=== PATIENT | male | born 1930 | race Caucasian/White ===

== ENCOUNTER 2018-04-24 14:54 | Emergency (ER) | payer MEDICARE, BC ==
[2018-04-24] MEDS ORDERED: Sodium Chloride 0.9% 1,000 ML IV SCH (15:30)
--- NOTE | 2018-04-24 15:31 | EDM.PDOC ---
ED HPI GENERAL MEDICAL PROBLEM - General Chief Complaint: Abdominal Pain Stated Complaint: STOMACH PAIN,FATIGUE Time Seen by Provider: 04/24/18 15:29 Source of Information: Reports: Patient History Limitations: Reports: No Limitations - History of Present Illness INITIAL COMMENTS - FREE TEXT/NARRATIVE: 87-year-old gentleman presents the ED for evaluation of left-sided mid abdominal pain 2 days. He does admit that it tends to come and go and has a colicky component. States his bowels are working normally. Denies that they've ever made him nauseated. States that his appetite is less than normal. Unsure about any fever or chills. He wears a depends because of incontinence of urine. Feels he is emptying his bladder completely. No history of abdominal surgery. Does not feel bloated. Is still passing flatus. Caretakers his daughter's identify that he is retaining some fluid in his lower extremities. Feel he may be a little more short of breath than normal. He has no known heart history of VT or heart failure. 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 At the time of dictation his home meds were not listed. His daughter reports that he has not had any medication changes in the last month. Patient states the pain does not radiate through to his back. He does not drink alcohol. Onset: Gradual Onset Date: 04/22/18 (Pain is been present for at least 2 days that he's been telling his doctors about.) Duration: Day(s):, Intermittent (Seems to be strongly colicky component to the pain) Location: Reports: Abdomen (Left mid abdomen.) Quality: Reports: Ache, Other (Occasionally sharp and stabbing.) Severity: Moderate Improves with: Reports: None Worsens with: Reports: None Context: Denies: Activity, Exercise, Lifting, Sick Contact, Trauma, Other Associated Symptoms: Reports: Fever/Chills (Not sure.), Loss of Appetite, Malaise, Shortness of Breath, Weakness (Perhaps a little more weak in his left lower extremity.). Denies: No Other Symptoms, Confusion, Chest Pain, Cough, cough w sputum, Diaphoresis, Headaches, Nausea/Vomiting, Rash, Seizure (Tire appreciates this seems to be a little more short of breath. 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: Reports: Other (see below) (.Appreciates this when he tries to walk up stairs as almost like he's got a bit of a foot drop.) Left Middle Abdomen Pain Score (Numeric/FACES): 8 - Related Data Allergies Allergy/AdvReac Type Severity Reaction Status Date / Time No Known Allergies Allergy Verified 04/24/18 15:07 Past Medical History Cardiovascular History: Reports: High Cholesterol, Hypertension Neurological History: Reports: CVA Psychiatric History: Reports: Depression Endocrine/Metabolic History: Reports: Diabetes, Type II, Hypothyroidism Social & Family History - Family History Family Medical History: Noncontributory - Tobacco Use Smoking Status *Q: Former Smoker Used Tobacco, but Quit: Yes Month/Year Tobacco Last Used: 2004 - Caffeine Use Caffeine Use: Reports: Coffee - Recreational Drug Use Recreational Drug Use: No - Living Situation & Occupation Living situation: Reports: Occupation: Retired ED ROS GENERAL - Review of Systems Review Of Systems: See Below Constitutional: Reports: Malaise, Weakness, Fatigue, Decreased Appetite. Denies : Fever, Chills, Weight Loss HEENT: Reports: Glasses, Other Respiratory: Reports: Shortness of Breath (A little hard of hearing. Does not wear hearing aids.). Denies: Wheezing, Pleuritic Chest Pain, Cough, Sputum, Hemoptysis Cardiovascular: Reports: Dyspnea on Exertion (Left leg is noted to be swelling a bit more than normal. Seems to be a little more short of breath on exertion.) , Edema. Denies: Blood Pressure Problem, Claudication, Lightheadedness, Orthopnea Endocrine: Reports: Fatigue GI/Abdominal: Reports: Abdominal Pain (See history of present illness), Decreased Appetite, Flatus. Denies: Constipation, Diarrhea, Distension ( Passing flatus), Hematemesis, Hematochezia, Mucous in Stool, Nausea, Stool Incontinence : Reports: Incontinence Musculoskeletal: Reports: Neck Pain ( shoulders), Shoulder Pain, Back Pain, Joint Pain (Knees hips) Skin: Reports: No Symptoms Neurological: Reports: Other (Previous CVA with right-sided hemiparesis from which he recovered from) Psychiatric: Reports: No Symptoms ( for the most part quite well.) Hematologic/Lymphatic: Reports: No Symptoms Immunologic: Reports: No Symptoms ED EXAM, GI/ABD - Physical Exam Exam: See Below Exam Limited By: No Limitations General Appearance: Alert, WD/WN, No Apparent Distress, Other (Does not feel warm to palpation. Vital signs are normal.) Eyes: Bilateral: Normal Appearance Throat/Mouth: Normal Inspection, Normal Lips, Normal Oropharynx Head: Atraumatic, Normocephalic Neck: Normal Inspection, Supple, Non-Tender, Full Range of Motion, Other (No jugular venous distention.). No: Carotid Bruit, Lymphadenopathy (L), Lymphadenopathy (R), Thyromegaly Respiratory/Chest: No Accessory Muscle Use, Chest Non-Tender, Crackles (Few crackles at both bases appreciated on auscultation posteriorly.). No: Lungs Clear, Normal Breath Sounds, Rhonchi, Wheezing Cardiovascular: Regular Rate, Rhythm, No Edema, No Gallop. No: Normal Peripheral Pulses GI/Abdominal Exam: Normal Bowel Sounds, Soft, Non-Tender, No Organomegaly, No Abnormal Bruit, No Mass, Pelvis Stable, Abnormal Bowel Sounds (I could elicit no tenderness. Decreased from the norm.), Other. No: Distended, Guarding, Rigid , Rebound, Tender (Male) Exam: No Hernia (No umbilical hernia.) Back Exam: Normal Inspection, Full Range of Motion. No: CVA Tenderness (L), CVA Tenderness (R) Extremities: Pedal Edema (2+ pitting edema left lower extremity. Right is normal.), Other (Evidence of osteophytic changes both knees and hips.) Neurological: Alert, Oriented, CN II-XII Intact, Normal Cognition EKG INTERPRETATION EKG Date: 04/24/18 Time: 15:57 Rhythm: NSR Rate (Beats/Min): 78 (Frequent unifocal PVCs. 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 Decreased both urge in both the limb and precordial leads compose COPD pattern.) ST-T: Normal QT: Prolonged (Mildly prolonged.) Course - Vital Signs Last Recorded V/S: Last Vital Signs Temp 36.9 C 04/24/18 15:02 Pulse 81 04/24/18 15:02 Resp 16 04/24/18 15:02 BP 145/72 H 04/24/18 15:02 Pulse Ox 99 04/24/18 15:02 - Orders/Labs/Meds Orders: Active Orders 24 hr Category Date Time Status EKG Documentation Completion [RC] STAT Care 04/24/18 15:30 Active Abdomen 1V Flat [CR] Stat Exams 04/24/18 15:30 Taken CULTURE BLOOD [BC] Stat Lab 04/24/18 15:43 Received CULTURE BLOOD [BC] Stat Lab 04/24/18 15:53 Received Magnesium Citrate [Citrate of Magnesia] Med 04/24/18 17:29 Once 240 ml PO ONETIME ONE Sodium Chloride 0.9% [Normal Saline] 1,000 ml Med 04/24/18 15:30 Active IV ASDIRECTED Blood Culture x2 Reflex Set [OM.PC] Stat Oth 04/24/18 15:30 Ordered Medication Orders Sodium Chloride (Normal Saline) 1,000 mls @ 200 mls/hr IV ASDIRECTED [place] Last Admin: 04/24/18 15:50 Dose: 200 mls/hr Magnesium Citrate (Citrate Of Magnesia) 240 ml PO ONETIME ONE Stop: 04/24/18 17:30 Labs: Laboratory Tests 04/24/18 04/24/18 04/24/18 Range/Units 15:43 15:43 15:43 WBC 4.46 (4.23-9.07) K/mm3 RBC 4.69 (4.63-6.08) M/mm3 Hgb 14.5 (13.7-17.5) gm/L Hct 43.0 (40.1-51.0) % MCV 91.7 (79.0-92.2) fl MCH 30.9 (25.7-32.2) pg MCHC 33.7 (32.2-35.5) g/dl RDW Std Deviation 45.6 H (35.1-43.9) fL Plt Count 165 (163-337) K/mm3 MPV 10.0 (9.4-12.3) fl Neutrophils % (Manual) 52 (40-60) % Band Neutrophils % 0 (0-10) % Lymphocytes % (Manual) 42 H (20-40) % Atypical Lymphs % 0 % Monocytes % (Manual) 3 (2-10) % Eosinophils % (Manual) 3 (0.8-7.0) % Basophils % (Manual) 0 L (0.2-1.2) Platelet Estimate Adequate Plt Morphology Comment Normal RBC Morph Comment Normal PT 10.7 (9.5-12.1) SECONDS INR 0.98 APTT (24-31) SECONDS Sodium 140 (136-145) mEq/L Potassium 4.2 (3.5-5.1) mEq/L Chloride 105 (98-107) mEq/L Carbon Dioxide 25 (21-32) mEq/L Anion Gap 14.2 (5-15) BUN 23 H (7-18) mg/dL Creatinine 1.5 H (0.7-1.3) mg/dL Est Cr Clr Drug Dosing 38.35 mL/min Estimated GFR (MDRD) 44 (>60) mL/min BUN/Creatinine Ratio 15.3 (14-18) Glucose 179 H (83-115) mg/dL Lactic Acid (0.4-2.0) mmol/L Calcium 9.9 (8.5-10.1) mg/dL Magnesium 1.8 (1.8-2.4) mg/dl Total Bilirubin 0.4 (0.2-1.0) mg/dL AST 13 L (15-37) U/L ALT 26 (16-63) U/L Alkaline Phosphatase 92 (46-116) U/L Troponin I < 0.017 (0.00-0.056) ng/mL C-Reactive Protein 1.4 H* (<1.0) mg/dL NT-Pro-B Natriuret Pep (0-450) pg/mL Total Protein 6.8 (6.4-8.2) g/dl Albumin 3.1 L (3.4-5.0) g/dl Globulin 3.7 gm/dL Albumin/Globulin Ratio 0.8 L (1-2) Lipase 150 (73-393) U/L Urine Color (Yellow) Urine Appearance (Clear) Urine pH (5.0-8.0) Ur Specific Hooper (1.005-1.030) Urine Protein (Negative) Urine Glucose (UA) (Negative) Urine Ketones (Negative) Urine Occult Blood (Negative) Urine Nitrite (Negative) Urine Bilirubin (Negative) Urine Urobilinogen (0.2-1.0) Ur Leukocyte Esterase (Negative) Urine RBC (0-5) /hpf Urine WBC (0-5) /hpf Ur Epithelial Cells (0-5) /hpf Urine Bacteria (FEW) /hpf Urine Mucus (FEW) /hpf 04/24/18 04/24/18 04/24/18 Range/Units 15:43 15:43 15:43 WBC (4.23-9.07) K/mm3 RBC (4.63-6.08) M/mm3 Hgb (13.7-17.5) gm/L Hct (40.1-51.0) % MCV (79.0-92.2) fl MCH (25.7-32.2) pg MCHC (32.2-35.5) g/dl RDW Std Deviation (35.1-43.9) fL Plt Count (163-337) K/mm3 MPV (9.4-12.3) fl Neutrophils % (Manual) (40-60) % Band Neutrophils % (0-10) % Lymphocytes % (Manual) (20-40) % Atypical Lymphs % % Monocytes % (Manual) (2-10) % Eosinophils % (Manual) (0.8-7.0) % Basophils % (Manual) (0.2-1.2) Platelet Estimate Plt Morphology Comment RBC Morph Comment PT (9.5-12.1) SECONDS INR APTT 32 H (24-31) SECONDS Sodium (136-145) mEq/L Potassium (3.5-5.1) mEq/L Chloride (98-107) mEq/L Carbon Dioxide (21-32) mEq/L Anion Gap (5-15) BUN (7-18) mg/dL Creatinine (0.7-1.3) mg/dL Est Cr Clr Drug Dosing mL/min Estimated GFR (MDRD) (>60) mL/min BUN/Creatinine Ratio (14-18) Glucose (83-115) mg/dL Lactic Acid 2.5 H (0.4-2.0) mmol/L Calcium (8.5-10.1) mg/dL Magnesium (1.8-2.4) mg/dl Total Bilirubin (0.2-1.0) mg/dL AST (15-37) U/L ALT (16-63) U/L Alkaline Phosphatase (46-116) U/L Troponin I (0.00-0.056) ng/mL C-Reactive Protein (<1.0) mg/dL NT-Pro-B Natriuret Pep 392 (0-450) pg/mL Total Protein (6.4-8.2) g/dl Albumin (3.4-5.0) g/dl Globulin gm/dL Albumin/Globulin Ratio (1-2) Lipase (73-393) U/L Urine Color (Yellow) Urine Appearance (Clear) Urine pH (5.0-8.0) Ur Specific Hooper (1.005-1.030) Urine Protein (Negative) Urine Glucose (UA) (Negative) Urine Ketones (Negative) Urine Occult Blood (Negative) Urine Nitrite (Negative) Urine Bilirubin (Negative) Urine Urobilinogen (0.2-1.0) Ur Leukocyte Esterase (Negative) Urine RBC (0-5) /hpf Urine WBC (0-5) /hpf Ur Epithelial Cells (0-5) /hpf Urine Bacteria (FEW) /hpf Urine Mucus (FEW) /hpf 04/24/18 Range/Units 16:04 WBC (4.23-9.07) K/mm3 RBC (4.63-6.08) M/mm3 Hgb (13.7-17.5) gm/L Hct (40.1-51.0) % MCV (79.0-92.2) fl MCH (25.7-32.2) pg MCHC (32.2-35.5) g/dl RDW Std Deviation (35.1-43.9) fL Plt Count (163-337) K/mm3 MPV (9.4-12.3) fl Neutrophils % (Manual) (40-60) % Band Neutrophils % (0-10) % Lymphocytes % (Manual) (20-40) % Atypical Lymphs % % Monocytes % (Manual) (2-10) % Eosinophils % (Manual) (0.8-7.0) % Basophils % (Manual) (0.2-1.2) Platelet Estimate Plt Morphology Comment RBC Morph Comment PT (9.5-12.1) SECONDS INR APTT (24-31) SECONDS Sodium (136-145) mEq/L Potassium (3.5-5.1) mEq/L Chloride (98-107) mEq/L Carbon Dioxide (21-32) mEq/L Anion Gap (5-15) BUN (7-18) mg/dL Creatinine (0.7-1.3) mg/dL Est Cr Clr Drug Dosing mL/min Estimated GFR (MDRD) (>60) mL/min BUN/Creatinine Ratio (14-18) Glucose (83-115) mg/dL Lactic Acid (0.4-2.0) mmol/L Calcium (8.5-10.1) mg/dL Magnesium (1.8-2.4) mg/dl Total Bilirubin (0.2-1.0) mg/dL AST (15-37) U/L ALT (16-63) U/L Alkaline Phosphatase (46-116) U/L Troponin I (0.00-0.056) ng/mL C-Reactive Protein (<1.0) mg/dL NT-Pro-B Natriuret Pep (0-450) pg/mL Total Protein (6.4-8.2) g/dl Albumin (3.4-5.0) g/dl Globulin gm/dL Albumin/Globulin Ratio (1-2) Lipase (73-393) U/L Urine Color Yellow (Yellow) Urine Appearance Clear (Clear) Urine pH 5.5 (5.0-8.0) Ur Specific Hooper > or = 1.030 (1.005-1.030) Urine Protein Negative (Negative) Urine Glucose (UA) Negative (Negative) Urine Ketones Trace H (Negative) Urine Occult Blood Negative (Negative) Urine Nitrite Negative (Negative) Urine Bilirubin Negative (Negative) Urine Urobilinogen 1.0 (0.2-1.0) Ur Leukocyte Esterase Negative (Negative) Urine RBC Not seen (0-5) /hpf Urine WBC Not seen (0-5) /hpf Ur Epithelial Cells 0-5 (0-5) /hpf Urine Bacteria Not seen (FEW) /hpf Urine Mucus Not seen (FEW) /hpf Meds: Medications Generic Name Dose Route Start Last Admin Trade Name Freq PRN Reason Stop Dose Admin Sodium Chloride 1,000 mls @ 200 mls/hr 04/24/18 15:30 04/24/18 15:50 Normal Saline IV 200 mls/hr ASDIRECTED [place] Administration Magnesium Citrate 240 ml 04/24/18 17:29 Citrate Of Magnesia PO 04/24/18 17:30 ONETIME ONE - Radiology Interpretation Free Text/Narrative:: 87-year-old male presents to the ED with left-sided midabdominal pain for the better part of 2 days. Seems to be a strong colicky component to the pain suggesting a bowel contraction. Dates his bowel function is normal. No previous abdominal surgery. He is afebrile. Vital signs are otherwise normal. Does have increased dependent edema left lower extremity which is new for him. Has a few crackles in both lung bases. Plan routine labs including a lipase and coags and BNP and magnesium level. One view of the abdomen will be obtained. IV will be normal saline at 200 mils an hour. Of note no home medications were documented in the chart because the patient did not bring in list of meds that he takes. Due to the holidays the drugstore that he attends is closed we were not able to obtain a list. - Re-Assessments/Exams Free Text/Narrative Re-Assessment/Exam: 04/24/18 16:30 KUB reveals increased stool throughout the colon. There is no sign of bowel obstruction. 04/24/18 17:18 Total white count is 4.46 with 52% neutrophils no bands cells reported and slight elevation of lymphocytes at 42%. Hemoglobin is 14.5 with hematocrit of 43.0. Bili, normal 165,000. PT is 10.7 with an INR of 0.98. PTT is slightly elevated at 32. Chemistry shows a sodium of 140 with potassium of 4.2. Port 104 with a bicarbonate of 25. Anion gap is 14.2. B1 is 23. Creatinine is 1.5. 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 Glucose is elevated at 179. Lactic acid elevated at 2.5. Serum calcium is 9.9. Magnesium low normal at 1.8. Total bilirubin 0.4 transaminases and liver function normal. Troponin I is less than 0.017. C-reactive protein is mildly elevated at 1.4. BNP is 392. Lipase 150. Urinalysis shows trace ketones only. Therefore his only problem I can identify is a little bit dehydrated. He has received some fluids well in the ED at the same time mils per hour. He requires Citroma as 7 or 8 ounces by mouth tonight with juice of choice to cleanse his bowel. This appears to be the cause of his abdominal pain. Pain will be discharged home on Citroma 8 ounces by mouth mixed with 6 ounces of juice of choice once to provide bowel cleanse. Both daughters were advised of the findings of abnormal ECG indicating likely old anteroseptal myocardial infarction. He is not in heart failure at this time. Is retaining a little bit of fluid in his left leg. I did not feel this was enough to warrant treatment at this time. Departure - Departure Time of Disposition: 17:25 Disposition: Home, Self-Care 01 Condition: Fair Clinical Impression: Constipation by delayed colonic transit Abdominal pain Qualifiers: Abdominal location: left upper quadrant Qualified Code(s): R10.12 - Left upper quadrant pain - Discharge Information Referrals: Sekou Pendleton MD [Primary Care Provider] - Forms: ED Department Discharge Additional Instructions: Evaluation in the emergency room today in regards to persistent or recurrent left-sided mid abdominal pain for the last 2 days. Emanation reveals a benign abdomen with no signs of anything serious. Lab work was done and reveals a normal white blood cell count with no signs of infection. Urinalysis turned out to be normal too. The only findings on lab testing was that you are little bit dehydrated. This was corrected with IV fluids while you were in the ED. Urinalysis proved to be negative for any signs of infection. X-ray of the abdomen shows increased stool throughout the colon particularly the right and mid and left upper colon. This appears to be the cause of your recurrent colicky type abdominal pain. There is 21 feet of small bowel once to move that stool plug over to the left side and out of your body. Constipation is treatment. I suggest use of 8 ounces of magnesium citrate or Citroma mixed with 5-6 ounces of juice of choice taken by mouth once. This usually starts to work in 1-2 hours and will usually make the bowels work 3 or 4 times. This should clear up your abdominal pain. Positive constipation persist consider taking MiraLAX powder 17 g or 1 scoop daily to keep the bowels regular. - My Orders Last 24 Hours: My Active Orders 04/24/18 15:30 EKG Documentation Completion [RC] STAT Abdomen 1V Flat [CR] Stat Sodium Chloride 0.9% [Normal Saline] 1,000 ml IV ASDIRECTED Blood Culture x2 Reflex Set [OM.PC] Stat 04/24/18 15:43 CULTURE BLOOD [BC] Stat 04/24/18 15:53 CULTURE BLOOD [BC] Stat 04/24/18 17:29 Magnesium Citrate [Citrate of Magnesia] 240 ml PO ONETIME ONE - Assessment/Plan Last 24 Hours: My Active Orders 04/24/18 15:30 EKG Documentation Completion [RC] STAT Abdomen 1V Flat [CR] Stat Sodium Chloride 0.9% [Normal Saline] 1,000 ml IV ASDIRECTED Blood Culture x2 Reflex Set [OM.PC] Stat 04/24/18 15:43 CULTURE BLOOD [BC] Stat 04/24/18 15:53 CULTURE BLOOD [BC] Stat 04/24/18 17:29 Magnesium Citrate [Citrate of Magnesia] 240 ml PO ONETIME ONE
[2018-04-24] MEDS ORDERED: Magnesium Citrate Solution 296 ML Bottle PO ONE (17:29)
--- NOTE | 2018-04-25 07:18 | CR ---
Abdomen: Supine view of the abdomen was obtained. Comparison: No previous study. Degenerative change is scattered within the spine. Mild vascular calcification is noted. Scattered stool is seen within the colon which is within normal limits. Bowel gas pattern is normal. Impression: 1. Incidental findings. Nothing acute is appreciated on supine abdominal x-ray. Diagnostic code #2
== END 2018-04-24 17:40 | disposition home or self-care (01) ==
LOC: JD.ED 14:54
DX: K59.01 Slow transit constipation (principal); I10 Essential (primary) hypertension; E78.00 Pure hypercholesterolemia, unspecified; E11.9 Type 2 diabetes mellitus without complications; E03.9 Hypothyroidism, unspecified; Z87.891 Personal history of nicotine dependence
CPT/HCPCS: 36415; 74018; 80053; 81001; 83605; 83690; 83735; 83880; 84484; 85007; 85027; 85610; 85730; 86140; 87040; 93005; 96360; 96361; 99284; A9270; J7040; 93010